=== PATIENT | female | born 2000 | race Caucasian/White ===

== ENCOUNTER 2019-01-23 13:22 | Emergency (ER) | payer MEDICAID ==
--- NOTE | 2019-01-23 14:58 | ER Document Report ---
ED Medical Screen (RME) - General Chief Complaint: Vag Bleeding, +preg <12wks Stated Complaint: VAGINAL BLEEDING TRAVEL OUTSIDE OF THE [place] IN LAST 30 DAYS: No - HPI Notes: 01/23/19 14:58 Patient complaint of sudden onset of vaginal bleeding while she was at work. She is 14 weeks . She denies nausea, vomiting or abdominal pain. - Related Data Allergies/Adverse Reactions: No Known Allergies Allergy (Verified 01/23/19 14:36) Past Medical History - General Last Menstrual Period: 10/16/18 - Social History Chew tobacco use (# tins/day): No Frequency of alcohol use: None Drug Abuse: None Renal/ Medical History: Denies: Hx Peritoneal Dialysis Physical Exam - Vital signs Vitals: Temp Pulse Resp BP Pulse Ox 98.1 F 85 17 135/82 H 98 01/23/19 13:41 01/23/19 13:41 01/23/19 13:41 01/23/19 13:41 01/23/19 13:41 Course - Vital Signs Vital signs: Temp Pulse Resp BP Pulse Ox 98.1 F 85 17 135/82 H 98 01/23/19 13:41 01/23/19 13:41 01/23/19 13:41 01/23/19 13:41 01/23/19 13:41
[2019-01-23 15:37] LABS: ABSOLUTE BASOPHILS # (AUTO) 0.1 10^3/uL (0.0-0.2); ABSOLUTE EOSINOPHILS # (AUTO) 0.2 10^3/uL (0.0-0.6); ABSOLUTE LYMPHOCYTES (AUTO) 2.4 10^3/uL (0.5-4.7); ABSOLUTE MONOCYTES (AUTO) 0.6 10^3/uL (0.1-1.4); ABSOLUTE NEUT (AUTO) 8.9 10^3/uL (1.7-8.2); BASOPHILS % (AUTO) 0.6 % (0-2); EOSINOPHILS % (AUTO) 1.9 % (0-6); HEMATOCRIT 37.4 % (36.0-47.0); LYMPHOCYTES % (AUTO) 19.5 % (13-45); MEAN CORPUSCULAR HEMOGLOBIN 30.5 pg (27.0-33.4); MEAN CORPUSCULAR HGB CONC 34.6 g/dL (32.0-36.0); MEAN CORPUSCULAR VOLUME 88 fl (80-97); MONOCYTES % (AUTO) 5.2 % (3-13); PLATELET COUNT 326 10^3/uL (150-450); RED BLOOD COUNT 4.25 10^6/uL (3.72-5.28); SEGMENTED NEUTROPHILS % (AUTO) 72.8 % (42-78); TOTAL CELLS COUNTED % (AUTO) 100 %; WHITE BLOOD COUNT 12.2 10^3/uL (4.0-10.5)
[2019-01-23 15:43] LABS: INTERNATIONAL RATION (INR) 0.93; PROTHROMBIN TIME 12.9 SEC (11.4-15.4)
[2019-01-23 15:44] LABS: APPEARANCE,URINE CLOUDY; BILIRUBIN,URINE NEGATIVE (NEGATIVE); COLOR,URINE YELLOW; GLUCOSE, URINE NEGATIVE (NEGATIVE); KETONES,URINE NEGATIVE (NEGATIVE); LEUKOCYTE ESTERASE,URINE MODERATE (NEGATIVE); NITRITE,URINE NEGATIVE (NEGATIVE); PROTEIN,URINE NEGATIVE (NEGATIVE); URINE SPECIFIC GRAVITY 1.027; UROBILINOGEN,URINE NEGATIVE mg/dL (<2.0)
--- NOTE | 2019-01-23 16:55 | ER Document Report ---
ED General - General Chief Complaint: Vag Bleeding, +preg <12wks Stated Complaint: VAGINAL BLEEDING Time Seen by Provider: 01/23/19 16:31 TRAVEL OUTSIDE OF THE [place] IN LAST 30 DAYS: No - HPI Notes: Patient is a 18-year-old female approximately 14wks 1 day who presents the emergency department complaining of vaginal bleeding that is heavier than what she has seen before during this over the last day. Patient states that she does not have any associated pain or discomfort. She is eating and drinking without difficulty. She is urinating normally and having normal bowel movements. She has no other concern of vaginal discharge or odor. No other concerns or complaints at this time. Denies any headache, fever, neck pain, URI, sore throat, chest pain, palpitations, syncope, cough, shortness of breath, wheeze, dyspnea, abdominal pain, nausea/vomiting/diarrhea, urinary re tention, dysuria, hematuria, or rash. - Related Data Allergies/Adverse Reactions: No Known Allergies Allergy (Verified 01/23/19 14:36) Past Medical History - General Last Menstrual Period: 10/16/18 - Social History Smoking Status: Former Smoker Chew tobacco use (# tins/day): No Frequency of alcohol use: None Drug Abuse: None Family History: Reviewed & Not Pertinent Patient has suicidal ideation: No Patient has homicidal ideation: No Renal/ Medical History: Denies: Hx Peritoneal Dialysis Review of Systems - Review of Systems -: Yes All other systems reviewed and negative Physical Exam - Vital signs Vitals: Temp Pulse Resp BP Pulse Ox 98.1 F 85 17 135/82 H 98 01/23/19 13:41 01/23/19 13:41 01/23/19 13:41 01/23/19 13:41 01/23/19 13:41 - Notes Notes: PHYSICAL EXAMINATION: GENERAL: Well-appearing, well-nourished and in no acute distress. LUNGS: Breath sounds clear to auscultation bilaterally and equal. No wheezes rales or rhonchi. HEART: Regular rate and rhythm without murmurs, rubs, gallops. ABDOMEN: Soft, nontender, nondistended abdomen. No guarding, no rebound. No masses appreciated. Normal bowel sounds present. No CVA tenderness bilaterally. : deferred Musculoskeletal: FROM to passive/active. Strength 5+/5. Extremities: No cyanosis, clubbing, or edema b/l. Peripheral pulses 2+. Capillary refill less than 3 seconds. NEUROLOGICAL: Normal speech, normal gait. PSYCH: Normal mood, normal affect. SKIN: Warm, Dry, normal turgor, no rashes or lesions noted. Course - Re-evaluation Re-evalutation: 01/23/19 17:56 Patient is an afebrile, well-hydrated, 18-year-old female who presents to the ED with bleeding in early and intrauterine . Vitals are a cceptable without any significant tachycardia, tachypnea, or hypoxia. PE is otherwise unremarkable. CBC, coags, UA, Rh unremarkable for acute pathology. TVUS shows evidence of IUP approx 14wks 4 days with + subchorionic hemorrhage noted. Patient is nontoxic-appearing is tolerating p.o. without any difficulties. Abd is soft and non-tender. No other labs or imaging warranted at this time based on H&P. Low suspicion/risk for acute appendicitis, bowel obstruction, acute cholecystitis, acute cholangitis, perforated diverticulitis, incarcerated hernia, pancreatitis, perforated ulcer, peritonitis, sepsis, pelvic inflammatory disease, ectopic , tubo-ovarian abscess, ovarian torsion, or other systemic emergent condition at this time. Patient is aware that her condition can change from initial presentation and she needs to monitor symptoms closely and seek medical attention if any acute changes. Conservative measures otherwise for symptoms. Recheck with your PCM/OBGYN in 3-5 days. Return to the ED with any worsening/concerning symptoms otherwise as reviewed in discharge. Patient is in agreement. - Vital Signs Vital signs: Temp Pulse Resp BP Pulse Ox 98.1 F 85 17 135/82 H 98 01/23/19 13:41 01/23/19 13:41 01/23/19 13:41 01/23/19 13:41 01/23/19 13:41 - Laboratory Result Diagrams: 01/23/19 15:19 Laboratory results interpreted by me: 01/23/19 01/23/19 15:19 15:19 WBC 12.2 H Absolute Neutrophils 8.9 H Urine Blood LARGE H Ur Leukocyte Esterase MODERATE H Discharge - Discharge Clinical Impression: Vaginal bleeding during Subchorionic hemorrhage Qualifiers: Fetus number: single or unspecified fetus Trimester: second trimester Qualified Code(s): O41.8X20 - Other specified disorders of amniotic fluid and membranes, second trimester, not applicable or unspecified; O46.8X2 - Other antepartum hemorrhage, second trimester Condition: Stable Disposition: HOME, SELF-CARE Instructions: Bleeding During Early ([facility]) Additional Instructions: Maintain fluid intake Proper hygienic technique Keep the skin clean Avoid intercourse Tylenol as needed F/u with your PCM/OBGYN in 2-3 days for a recheck Return to the ED with any development of CHEW/fever, trouble with vision, eye redness, worsening pain, urethral discharge, urinary retention, blood in the urine, flank pain, abdominal pain, n/v, Chest Pain, shortness of breath, joint pains, trouble breathing, or any other worsening/concerning symptoms as needed otherwise. Forms: Elevated Blood Pressure Referrals: [facility] [Provider Group] - 01/25/19
--- NOTE | 2019-01-23 17:43 | RADIOLOGY REPORT (SQ) ---
EXAM DESCRIPTION: U/S OB 14+ TRNABD 1GES W/O DOP COMPLETED DATE/TIME: 01/23/2019 5:09 pm REASON FOR STUDY: Vaginal bleeding gestational age of 14 weeks 1 day clinically COMPARISON: None. TECHNIQUE: Static and Dynamic grayscale imaging performed of gravid uterus using transabdominal appr oach. Additional selected color Doppler and spectral images recorded. All stored on PACS. LIMITATIONS: None. FINDINGS: FETUSES SEEN:1 EGA: 14 weeks 4 days Calculated using BPD,FL,HC,AC documented on images. No significant discrepancy with clinical dates. ISMA: 07/20/2019 EFW: Not calculated. Grams PERCENTILE: Not calculated. CLARE: Adequate. PLACENTA: Anterior. There is a subchorionic bleed measuring 2.8 x 1.7 cm. PRESENTATION: Variable. ANATOMY: HEART RATE: 160 beats per minute. anatomical survey was not performed. OTHER: No other significant finding. MATERNAL ADNEXA: Maternal ovaries not visualized. CERVICAL LENGTH: Not measured. Closed. OTHER: No other significant finding. IMPRESSION: There is a live intrauterine gestation of 14 weeks 4 days. There is a subchorionic hemo rrhage. anatomical survey was not performed. Trimester of : Second trimester - 13 weeks 1 day to 27 weeks 6 days. TECHNICAL DOCUMENTATION: JOB ID: [id number] [employer]- All Rights Reserved Reading location - IP/workstation name: [email or web address]
[2019-01-23 18:39] VITALS: BP 117/70
== END 2019-01-23 18:27 | disposition home or self-care (01) ==
LOC: ER 13:22
DX: O46.8X2 Other antepartum hemorrhage, second trimester (principal); Z3A.00 Weeks of gestation of pregnancy not specified; Z87.891 Personal history of nicotine dependence
CPT/HCPCS: 36415; 76805; 81001; 85025; 85610; 85730; 86900; 86901; 99284

== ENCOUNTER 2019-07-25 21:47 | Outpatient (CLI) | payer MEDICAID ==
[2019-07-25 22:32] LABS: APPEARANCE,URINE SLIGHTLY-CLOUDY; BILIRUBIN,URINE NEGATIVE (NEGATIVE); COLOR,URINE YELLOW; GLUCOSE, URINE NEGATIVE (NEGATIVE); KETONES,URINE NEGATIVE (NEGATIVE); LEUKOCYTE ESTERASE,URINE NEGATIVE (NEGATIVE); NITRITE,URINE NEGATIVE (NEGATIVE); PROTEIN,URINE 30 mg/dL (NEGATIVE); URINE SPECIFIC GRAVITY 1.024; UROBILINOGEN,URINE NEGATIVE mg/dL (<2.0)
[2019-07-25 22:54] LABS: URINE AMPHETAMINES SCREEN NEGATIVE; URINE BARBITURATES SCREEN NEGATIVE; URINE BENZODIAZEPINES SCREEN NEGATIVE; URINE COCAINE SCREEN NEGATIVE; URINE MARIJUANA (THC) SCREEN NEGATIVE; URINE METHADONE SCREEN NEGATIVE; URINE PHENCYCLIDINE SCREEN NEGATIVE
--- NOTE | 2019-07-26 01:16 | Non Stress Test Report ---
Non Stress Test Datetime Report Generated by CPN: 07/26/2019 01:16 DEMOGRAPHIC EGA NST: 40.2 INDICATION Indication for Study: Ordered by Provider URINE RESULTS Urine Protein, NST: Positive Urine Ketones - NST: Negative Urine Glucose - NST: Negative Urine Blood - NST: Negative MONITORING Monitor Explained: Monitor Explained; Test Explained; Patient Verbalized Understanding Time on Monitor: 07/25/2019 22:04 Time off Monitor: 07/25/2019 23:11 NST Duration: 67 NST INTERVENTIONS NST Interventions: PO Hydration Physician Notified NST: Donahue BABY A: [id number] BABY A Movement : Present Contraction Frequency : 2-9 FHR Baseline : 140 Accelerations : 15X15 Decelerations : None Variability : Moderate 6-25bpm NST Review: Meets Criteria for Reactive NST NST Review and Verified By : Lewis Caputo RN NST Results: Reactive NST REPORT Report Trigger: Send Report
== END 2019-07-26 00:26 | disposition home or self-care (01) ==
LOC: LC 21:47
PROVIDERS: ATTEND Obstetrics & Gynecology Gynecology
PROC: 4A1HXCZ Monitoring of Products of Conception, Cardiac Rate, External Approach (ICD-10-PCS; principal; 2019-07-25)
DX: O47.1 False labor at or after 37 completed weeks of gestation (principal); O48.0 Post-term pregnancy; Z3A.30 30 weeks gestation of pregnancy
CPT/HCPCS: 59025; 80307; 81005

== ENCOUNTER 2019-07-27 06:52 | Inpatient (IN) | payer MEDICAID ==
[2019-07-27] MEDS ORDERED: RINGERS SOLUTION,LACTATED 1,000 ML IV PRN (07:52)
[2019-07-27] MEDS ORDERED: RINGERS SOLUTION,LACTATED 300 ML IV ONE (07:52)
[2019-07-27] MEDS ORDERED: OXYTOCIN/NORMAL SALINE 20 UNIT/1,000 ML RTUINJ IV PRN ×2 (07:52→22:21)
[2019-07-27] MEDS ORDERED: OXYTOCIN/NORMAL SALINE 20 UNIT/1,000 ML RTUINJ ONE (08:07)
[2019-07-27] MEDS ORDERED: MISOPROSTOL 0.2 MG TABLET ONE (08:07)
[2019-07-27] MEDS ORDERED: LIDOCAINE 1% INJ-PF (10 MG/ML) 30 ML SDV ONE (08:07)
[2019-07-27] MEDS ORDERED: OXYTOCIN 10 UNIT/ML VIAL ONE (08:07)
[2019-07-27 08:19] LABS: ABSOLUTE EOSINOPHILS # (AUTO) 0.2 10^3/uL (0.0-0.6); ABSOLUTE MONOCYTES (AUTO) 0.7 10^3/uL (0.1-1.4); ABSOLUTE NEUT (AUTO) 7.8 10^3/uL (1.7-8.2); BASOPHILS % (AUTO) 0.4 % (0-2); EOSINOPHILS % (AUTO) 1.5 % (0-6); HEMATOCRIT 34.6 % (36.0-47.0); HEMOGLOBIN 11.6 g/dL (12.0-15.5); LYMPHOCYTES % (AUTO) 18.4 % (13-45); MEAN CORPUSCULAR HGB CONC 33.4 g/dL (32.0-36.0); MEAN CORPUSCULAR VOLUME 84 fl (80-97); MONOCYTES % (AUTO) 6.6 % (3-13); PLATELET COUNT 255 10^3/uL (150-450); RED BLOOD COUNT 4.13 10^6/uL (3.72-5.28); RED CELL DISTRIBUTION WIDTH 15.3 % (11.5-14.0); SEGMENTED NEUTROPHILS % (AUTO) 73.1 % (42-78); TOTAL CELLS COUNTED % (AUTO) 100 %; WHITE BLOOD COUNT 10.7 10^3/uL (4.0-10.5)
--- NOTE | 2019-07-27 08:33 | Admission Physical ---
Datetime Report Generated by CPN: 07/27/2019 08:32 CURRENT ADMISSION Chief Complaint: Suspected Ruptured Membranes Indication for Induction: Not Applicable Admit Impression : Term, Intrauterine Admit Plan: Admit to Unit; Initiate Labor Augmentation Protocol ALLERGIES Medication Allergies: No Medication Allergies: No Known Allergies (07/27/2019) Latex: No Latex Allergies OBSTETRICAL HISTORY EDC: 07/23/2019 00:00 : 1 Para: 0 Term: 0 : 0 SAB: 0 IAB: 0 Ectopic: 0 Livin Cesareans: 0 VBACs: 0 Multiple Births: 0 Gestational Diabetes: No Rh Sensitization: No Incompetent Cervix: No SETH: No Infertility: No ART Treatment: No Uterine Anomaly: No IUGR: No Hx Previous C/S: No Macrosomia: No Hx Loss/Stillborn: No PIH: No Hx : No Placenta Previa/Abruption: No Depression/PP Depression: No PTL/PROM: No Post Hemorrhage: No Current Procedures: Ultrasound Obstetrical History Comments: g1 - current SEE RECORDS Alcohol: No Marijuana : No Cocaine: No Other Illicit Drugs: No Cigarettes: Former Smoker. [id number] MEDICAL HISTORY Diabetes: No Blood Transfusion: No Pulmonary Disease (Asthma, TB): No Breast Disease: No Hypertension: No Mutual Fund Analyst Surgery: No Heart Disease: No Hosp/Surgery: No Autoimmune Disorder: No Anesthetic Complications: No Kidney Disease: No Abnormal Pap Smear: No Neuro/Epilepsy: No Psychiatric Disorders: No Other Medical Diseases: No Hepatitis/Liver Disease: No Significant Family History: No Varicosities/Phlebitis: No Trauma/Violence : No Thyroid Dysfunction: No INFECTIOUS HISTORY Gonorrhea: No Genital Herpes: No Chlamydia: No Tuberculosis: No Syphilis: No Hepatitis: No HIV/AIDS Exposure: No Rash or Viral Illness: No HPV: No PHYSICAL EXAM General: Normal HEENT: Normal Neurologic: Normal Thyroid: Normal Heart: Normal Lungs: Normal Breast: Normal Back: Normal Abdomen: Normal Genitourinary Exam: Normal Extremities: Normal DTRs: Normal Pelvic Type: Adequate Vital Signs: Reviewed; Within Normal Limits VAGINAL EXAM Dilatation: 2 Effacement: 80 Station: -3 Contraction Comments: rare MEMBRANES Membranes: Ruptured Amniotic Fluid Color: Clear FETUS A EGA: 40.4 Monitoring: External US FHR- Baseline: 120s Variability: Moderate 6-25bpm Accelerations: 15X15 Decelerations: None Admit Comment: w/IUP@ 40-4/7 weeks presented to L_D c/o that her "water broke" at 0545. Clear fluid noted, She GBS Neg. No other issues. FHTS reactive. PLANS FOR LABOR AND DELIVERY Labor and Delivery: None Pain Management: Natural Feeding Preference: Breast Benefit of Breast Feed Discussed: Yes Circumcision: N/A INFORMED CONSENT Signature: with User ID: [email or web address]
[2019-07-27 08:56] LABS: APPEARANCE,URINE SLIGHTLY-CLOUDY; BILIRUBIN,URINE NEGATIVE (NEGATIVE); COLOR,URINE YELLOW; GLUCOSE, URINE NEGATIVE (NEGATIVE); KETONES,URINE NEGATIVE (NEGATIVE); LEUKOCYTE ESTERASE,URINE NEGATIVE (NEGATIVE); NITRITE,URINE NEGATIVE (NEGATIVE); PROTEIN,URINE NEGATIVE (NEGATIVE); UROBILINOGEN,URINE NEGATIVE mg/dL (<2.0)
[2019-07-27 09:17] LABS: URINE AMPHETAMINES SCREEN NEGATIVE; URINE BARBITURATES SCREEN NEGATIVE; URINE BENZODIAZEPINES SCREEN NEGATIVE; URINE COCAINE SCREEN NEGATIVE; URINE MARIJUANA (THC) SCREEN NEGATIVE; URINE METHADONE SCREEN NEGATIVE; URINE PHENCYCLIDINE SCREEN NEGATIVE
[2019-07-27] MEDS ORDERED: PHENYLEPHRINE HCL INJ/PF 10 MG/1 ML SDV ONE (09:38)
[2019-07-27] MEDS ORDERED: EPHEDRINE SULFATE INJ 50 MG/1 ML AMPULE ONE (09:39)
[2019-07-27] MEDS ORDERED: FENTANYL CITRATE INJ/PF 100 MCG/2 ML AMPUL ONE (09:39)
[2019-07-27] MEDS ORDERED: FENTANYL/BUPIVACAINE/NS/PF 300 MCG/150 ML RTUINJ EPI ONE (09:40)
[2019-07-27] MEDS ORDERED: BUPIVACAINE HCL 0.25 % INJ/PF (2.5 MG/1 ML) 30 ML VIAL ONE (09:40)
[2019-07-27] MEDS ORDERED: HYDRALAZINE HCL INJ/PF 20 MG/1 ML SDV ONE (15:23)
[2019-07-27] MEDS ORDERED: MAGNESIUM SULFATE 20 GM/500 ML RTUINJ IV ONE (15:24)
[2019-07-27] MEDS ORDERED: MAGNESIUM SULFATE 4 GM/100 ML RTUPB IV ONE (15:24)
[2019-07-27] MEDS ORDERED: ACETAMINOPHEN 325 MG TABLET PO ONE (20:59)
[2019-07-27] MEDS ORDERED: ACETAMINOPHEN 325 MG TABLET ONE (21:10)
[2019-07-27] MEDS ORDERED: DIBUCAINE 1% OINTMENT 56 GM TP PRN (22:21)
[2019-07-27] MEDS ORDERED: HYDROCODONE/ACETAMINOPHEN 5-325 MG TABLET PO PRN (22:21)
[2019-07-27] MEDS ORDERED: MEASLES,MUMPS&RUBELLA VACC/PF 0.5 ML VIAL SUBCUT PRN (22:21)
[2019-07-27] MEDS ORDERED: BENZOCAINE/MENTHOL AEROSOL SPRAY 56 ML TOP PRN (22:21)
[2019-07-27] MEDS ORDERED: DIPH/PERTUSS(ACELL)/TETANUS VAC/PF 0.5 ML SYR (>=10YO) IM PRN (22:21)
[2019-07-27] MEDS ORDERED: ZOLPIDEM TARTRATE 5 MG TABLET PO PRN (22:21)
[2019-07-27] MEDS ORDERED: ONDANSETRON HCL 8 MG TABLET PO PRN (22:24)
[2019-07-27] MEDS ORDERED: DIPHENHYDRAMINE HCL 25 MG CAPSULE PO PRN (22:24)
[2019-07-27] MEDS ORDERED: FAMOTIDINE 20 MG TABLET PO PRN (22:24)
[2019-07-27] MEDS ORDERED: IBUPROFEN 800 MG TABLET PO ONE (23:00)
--- NOTE | 2019-07-27 23:03 | Delivery Summary ---
Del Sum A-C Datetime Report Generated by CPN: 07/27/2019 23:03 DELIVERY PERSONNEL DELIVERY PERSONNEL: [id number] Delivery Doctor:: Dr. Rogers Labor and Delivery Nurse:: Zoie Santos RN Nursery Nurse:: Kelsea Best RN Machine Striper/ACUTE DIALYSIS NURSE: Hetal Christiano, HEEL PADDER MATERNAL INFORMATION Delivery Anesthesia: Epidural Medications After Delivery: Pitocin Drip 20 Units/1000ml NSS Delivery QBL: 50 Provider Comments: Pt C_P. Head delivered CHRIS. Ant _ post shoulder delivered followed by rest of body. Baby placed on mom's abdomen. Cord clamped x 2 and cut. Cord blood collected. Placenta delivered intact with 3VC. Lac repaired as above. LABOR SUMMARY EDC: 07/23/2019 00:00 No. Babies in Womb: 1 Attempted: No Labor Anesthesia: Epidural LABOR INFORMATION Reason for Induction: Not Applicable Onset of Labor: 07/27/2019 05:45 Complete Dilatation: 07/27/2019 18:42 Oxytocin: Augmentation Group B Beta Strep: neg Antibiotics # of Doses: 0 Steroids Given: None Reason Steroids Not Administered: Not Applicable MEMBRANES Membranes Rupture Method: Spontaneous Rupture of Membranes: 07/27/2019 05:45 Length of Rupture (hr): 14.18 Amniotic Fluid Color: Clear Amniotic Fluid Amount: Moderate Amniotic Fluid Odor: Normal STAGES OF LABOR Stage 1 hr: 12 Stage 1 min: 57 Stage 2 hr: 1 Stage 2 min: 14 Stage 3 hr: 0 Stage 3 min: 7 Total Time in Labor hr: 14 Total Time in Labor min: 18 VAGINAL DELIVERY Episiotomy: None Laceration #1: Vaginal Laceration Extension #1: First Degree Laceration Repair: Yes Laceration Repair Note: Repaired with 2.0 and 3.0 Vicryl Sharps Count Correct: Yes CSECTION DELIVERY Primary Indication: N/A Secondary Indication: N/A CSection Incidence: N/A Labor: N/A Elective: N/A CSection Incision: N/A BABY A INFORMATION Delivery Date/Time: 07/27/2019 19:56 Method of Delivery: Vaginal Born in Route : No : N/A Forceps: N/A Vacuum Extraction: N/A Shoulder Dystocia : No PRESENTATION/POSITION BABY A Presentation: Cephalic Cephalic Presentation: Vertex Vertex Position: Left Occipital Anterior Breech Presentation: N/A PLACENTA INFORMATION BABY A Placenta Delivery Time : 07/27/2019 20:03 Placenta Method of Delivery: Spontaneous Placenta Status: Delivered SCORES BABY A Heart Rate 1 min: >100 bpm Resp Effort 1 min: Good Cry Reflex Irritability 1 min: Cough or Sneeze or Pulls Away Muscle Tone 1 min: Active Motion Color 1 min: Blue/Pale Resuscitation Effort 1 min: Tactile Stimulation SCORE 1 MIN: 8 Heart Rate 5 min: >100 bpm Resp Effort 5 min: Good Cry Reflex Irritability 5 min: Cough or Sneeze or Pulls Away Muscle Tone 5 min: Active Motion Color 5 min: Body Decor[place], Extremities Blue Resuscitation Effort 5 min: Tactile Stimulation SCORE 5 MIN: 9 INFANT INFORMATION BABY A Gestational Age at Delivery: 40.4 Gestational Status: Full Term- 39- 40.6 Weeks Infant Outcome : Liveborn Infant Condition : Stable Infant Sex: Female IDENTIFICATION BABY A Verification Date/Time: 07/27/2019 20:07 ID Band Number: [id number] Mother's Name Verified: Yes Infant RN Verifying : Andrew Hinsonco, RN Additional Verifying Personnel: Andrew Smith, RN WEIGHT/LENGTH BABY A Infant Birthweight (gm): 4218 Weight (lb): 9 Weight (oz): 5 Length (in): 21.50 Infant Length (cm): 54.61 CORD INFORMATION BABY A No. Cord Vessels: 3 Nuchal Cord : N/A Cord Blood Taken: Yes-For Eval (Mom's Blood Type - or O+) Suction: None ASSESSMENT BABY A Infant Complications: Multiple Variable Decels Physical Findings at Delivery: Molding of the Head; Puncture Wound from Scalp Electrode; Extra Digit(s) Physical Findings- Other: See full nursery negotiator sales Respirations: Appears Normal Skin to Skin: Yes Skin to Skin Time (min): 100 Trash Collector/ALS Called : No Infant Care By: Miya Best RN Transferred To: Remains with Mother BABY B INFORMATION : N/A SIGNATURES Signature: with User ID: [email or web address]
[2019-07-28] MEDS: IBUPROFEN 800 MG TABLET PO SCH ×3 (05:25→21:10)
[2019-07-28 06:54] LABS: HEMATOCRIT 27.7 % (36.0-47.0); MEAN CORPUSCULAR HGB CONC 33.2 g/dL (32.0-36.0); MEAN CORPUSCULAR VOLUME 84 fl (80-97); PLATELET COUNT 195 10^3/uL (150-450); RED BLOOD COUNT 3.29 10^6/uL (3.72-5.28); RED CELL DISTRIBUTION WIDTH 15.9 % (11.5-14.0); WHITE BLOOD COUNT 13.5 10^3/uL (4.0-10.5)
[2019-07-28 07:08] LABS: HEMOGLOBIN 9.2 g/dL (12.0-15.5)
[2019-07-28] MEDS: SENNOSIDES/DOCUSATE 8.6-50 MG 1 EACH TABLET PO SCH (10:50)
[2019-07-28] MEDS: PRENATAL VITAMIN W DHA CAPSULE PO SCH (10:50)
[2019-07-28] MEDS: FERROUS SULFATE 325 MG TABLET PO SCH ×2 (10:50→18:38)
[2019-07-28] MEDS: DOCUSATE SODIUM 100 MG CAPSULE PO SCH ×2 (10:50→18:38)
--- NOTE | 2019-07-28 13:23 | PDOC PROGRESS REPORT ---
Subjective-OB Progress Note for:: 07/28/19 Subjective: reports bleeding slowing, pain controlled with current meds, denies needs Physical Exam (OB) Vital Signs: Temp Pulse Resp BP Pulse Ox 97.7 F 86 20 120/69 99 07/28/19 08:48 07/28/19 08:48 07/28/19 08:48 07/28/19 08:48 07/28/19 08:48 Intake & Output 07/27/19 07/28/19 07/29/19 06:59 06:59 06:59 Weight 112.4 kg - Abdomen Description: Soft Hernia Present: No Fundal Description: Firm, Midline Fundal Height: u/u - u/2 - Abdominal Distension: No distension Tenderness: Nontender - Extremities Lower extremities: Yara's sign - neg Calf: Normal, Nontender Objective-Diagnostic Laboratory: 07/28/19 06:39 07/28/19 06:39 WBC 13.5 H RBC 3.29 L Hgb 9.2 L D Hct 27.7 L MCV 84 MCH 28.0 MCHC 33.2 RDW 15.9 H Plt Count 195 Assessment and Plan(PN) - Assessment and Plan (1) Normal vaginal delivery Is this a current diagnosis for this admission?: Yes (2) Obstetrical laceration, first degree Is this a current diagnosis for this admission?: Yes - Time Spent with Patient Time with patient: Less than 15 minutes Medications reviewed and adjusted accordingly: Yes - Disposition Anticipated Discharge: Home Within: within 24 hours
[2019-07-29] MEDS: IBUPROFEN 800 MG TABLET PO SCH ×2 (05:47→13:47)
[2019-07-29 08:41] VITALS: BP 133/78
--- NOTE | 2019-07-29 10:24 | PDOC DISCHARGE SUMMARY ---
Final Diagnosis Discharge Date: 07/29/19 - Final Diagnosis (1) Normal vaginal delivery Is this a current diagnosis for this admission?: Yes (2) Obstetrical laceration, first degree Is this a current diagnosis for this admission?: Yes (3) SROM (spontaneous rupture of membranes) Is this a current diagnosis for this admission?: Yes Discharge Data - Discharge Medication Home Medications: Pnv No.103/Folic/Om3s/Fish Oil [ Gummies] 1 each PO DAILY 01/23/19 Ascorbic Acid [Vitamin C] 500 mg PO DAILY 07/27/19 Iron 18 mg PO BID 07/27/19 Reason(s) for Admission: PROM Procedures: NST Intrapartum Procedure(s): Spontaneous Vaginal Delivery Complication(s): Laceration-Perineal Laceration-Degree: 1st - Diagnosis Test Laboratory: Temp Pulse Resp BP Pulse Ox 98.0 F 72 16 133/78 H 99 07/29/19 07:27 07/29/19 07:27 07/29/19 07:27 07/29/19 07:27 07/29/19 07:27 07/27/19 07/27/19 07/28/19 07:06 07:53 06:39 RBC 4.13 3.29 L Hgb 11.6 L 9.2 L D Hct 34.6 L 27.7 L Urine Opiates Screen NEGATIVE - Discharge information/Instructions Discharge Activity: Balance Activity w/Rest, Pelvic Rest Discharge Diet: Regular Disposition: HOME, SELF-CARE Follow up with: [facility] in: 4, Weeks
[2019-07-29] MEDS: FERROUS SULFATE 325 MG TABLET PO SCH (10:44)
[2019-07-29] MEDS: DOCUSATE SODIUM 100 MG CAPSULE PO SCH (10:44)
[2019-07-29] MEDS: SENNOSIDES/DOCUSATE 8.6-50 MG 1 EACH TABLET PO SCH (10:44)
[2019-07-29] MEDS: PRENATAL VITAMIN W DHA CAPSULE PO SCH (10:44)
== END 2019-07-29 15:35 | disposition home or self-care (01) | DRG 788 ==
LOC: LC 06:52 → LR 07:18 → 2S 22:42
PROVIDERS: ADMIT Obstetrics & Gynecology; ATTEND Obstetrics & Gynecology
PROC: 10D00Z1 Extraction of Products of Conception, Low, Open Approach (ICD-10-PCS; principal; 2019-07-27)
PROC: 0HQ9XZZ Repair Perineum Skin, External Approach (ICD-10-PCS; 2019-07-27)
DX: O70.0 First degree perineal laceration during delivery (principal); Z37.0 Single live birth; Z87.891 Personal history of nicotine dependence; Z3A.40 40 weeks gestation of pregnancy
CPT/HCPCS: 36415; 80307; 81005; 85025; 85027; 86592; 86850; 86900; 86901; 94760; J0360; J2370; J2590; J3010; J3475; J3490